=== PATIENT | female | born 1950 ===

== ENCOUNTER 2023-04-03 05:53 | Day surgery (SDC) | payer OTHER | END 2023-04-03 10:20 | disposition home or self-care (01) | LOC: AMB-ENDOS 05:53 | PROVIDERS: ATTEND Colon & Rectal Surgery | DX: D12.8 Benign neoplasm of rectum (principal); K63.5 Polyp of colon; Z20.822 Contact with and (suspected) exposure to COVID-19; Z88.6 Allergy status to analgesic agent ==